=== PATIENT | female | born 1995 | race Caucasian/White ===

== ENCOUNTER → 2025-05-31 15:19 | Outpatient (CLI) | payer OTHER, SELFPAY ==
[2025-05-31 16:39] LABS: Natera Collection Specimen Collected
[2025-05-31 16:58] LABS: Add Manual Diff / Slide Review NO; Hematocrit 34.9 % (36-46); Hemoglobin 11.6 g/dL (12.0-16.0); Lymphocytes Absolute Auto 1500 /uL (1100-4500); Mean Corpuscular HGB Conc 33.2 % (30-36); Mean Corpuscular Hemoglobin 24.6 PG (26-34); Mean Corpuscular Volume 73.9 fL (80-100); Platelet Count 373 X10^3/uL (150-400)
[2025-05-31 17:16] LABS: HEMOLYSIS < 15 (0-50); Iron 33 ug/dL (37-170)
[2025-05-31 17:17] LABS: Hemoglobin A1C% w Est Avg Glu 5.1 % (4.0-6.0)
[2025-05-31 17:28] LABS: Percent Iron Saturation 6 % (15-50); Total Iron Binding Capacity 520 ug/dL (265-497); Transferrin 455 mg/dL (206-381)
[2025-05-31 17:52] LABS: Ferritin 10 ng/mL (6-137)
[2025-06-01 15:02] LABS: Hepatitis B Surface Antigen NEGATIVE s/c (NEGATIVE)
[2025-06-01 15:34] LABS: HIV 1 & 2 Ab/Ag 4th Gen Combo NEGATIVE (NEGATIVE); Hep C Virus Ab w/Reflex Quant NEGATIVE s/c (NEGATIVE)
== END ==
PROVIDERS: Referring Provider Obstetrics & Gynecology; Visit Provider Obstetrics & Gynecology
DX: O09.899 Supervision of other high risk pregnancies, unspecified trimester (principal); D64.9 Anemia, unspecified; Z36.0 Encounter for antenatal screening for chromosomal anomalies
CPT/HCPCS: 80055; 82728; 83036; 83540; 83550; 86787; 86803; 86850; 86900; 86901; 87086; 87389

== ENCOUNTER → 2025-07-26 11:58 | Outpatient (CLI) | payer OTHER, SELFPAY | PROVIDERS: Referring Provider Obstetrics & Gynecology; Visit Provider Obstetrics & Gynecology | DX: Z36.0 Encounter for antenatal screening for chromosomal anomalies (principal) | CPT/HCPCS: 36415; 82105 ==